=== PATIENT | female | born 1975 | race Caucasian/White ===

== ENCOUNTER 2018-11-02 02:48 | Emergency (ER) | payer BC, OTHER ==
[~2018-11-02] VITALS: Ht 167.6 cm; Wt 66.0 kg
[2018-11-02] MEDS ORDERED: ONDANSETRON 4MG ODT PO STA (04:19)
[2018-11-02 04:56] LABS: BASOPHILS % 0.9 % (0.0-2.0); EOSINOPHILS % 2.1 % (0.0-5.0); HEMATOCRIT. 41.7 % (36.0-48.0); HEMOGLOBIN. 13.6 g/dL (12.0-16.0); LYMPHOCYTES % 33.1 % (20.0-50.0); MEAN CORPUSCULAR HEMOGLOBIN 30.1 pg (28.0-32.0); MEAN CORPUSCULAR VOLUME 92.1 fL (81.0-99.0); MEAN PLATELET VOLUME 8.4 fl (7.4-10.4); MONOCYTES % 6.4 % (2.0-8.0); NEUTROPHILS % 57.5 % (40.0-76.0); PLATELET 249 x1000/uL (130-400); RED BLOOD CELL COUNT 4.53 mill/uL (4.2-5.4); RED CELL DISTRIBUTION WIDTH 13.7 % (11.6-14.6)
[2018-11-02 05:04] LABS: CHLORIDE 110 mEq/L (98-107)
[2018-11-02] MEDS ORDERED: ONDANSETRON 4MG ODT PO ONE (05:15)
[2018-11-02] MEDS ORDERED: IBUPROFEN 600MG TABLET PO ONE (05:15)
[2018-11-02 06:15] VITALS: BP 105/71
[2018-11-02 06:21] LABS: CLARITY URINE CLEAR (CLEAR); COLOR URINE YELLOW (YELLOW); KETONES URINE TRACE (NEGATIVE); LEUKOCYTE ESTERASE URINE TRACE (NEGATIVE); NITRITE URINE NEGATIVE (NEGATIVE); OCCULT BLOOD URINE NEGATIVE (NEGATIVE); PROTEIN URINE NEGATIVE (NEGATIVE); SPECIFIC GRAVITY URINE 1.021 (1.005-1.030); UROBILINOGEN URINE 0.2 E.U./dL (0.2-1.0)
== END 2018-11-02 06:15 | disposition home or self-care (01) ==
LOC: ER 02:48
DX: R55 Syncope and collapse (principal); R11.2 Nausea with vomiting, unspecified; F32.9 Major depressive disorder, single episode, unspecified; G43.909 Migraine, unspecified, not intractable, without status migrainosus
CPT/HCPCS: 36415; 71045; 80053; 81003; 81025; 85025; 93005; 99284; Q0162